=== PATIENT | female | born 1990 | race Caucasian/White ===

== ENCOUNTER 2018-01-04 10:25 | Inpatient (IN) | payer OTHER ==
[~2018-01-04] VITALS: Ht 165 cm; Wt 80.3 kg
[2018-01-04] MEDS ORDERED: PREN1TAB26 PO (10:48)
[2018-01-04] MEDS ORDERED: RINGERS SOLUTION,LACTATED 1,000 ML IV ONE (11:16)
[2018-01-04] MEDS ORDERED: OXYTOCIN 30 UNITS/LACT RINGERS 500 ML IV ONE (11:16)
[2018-01-04] MEDS ORDERED: LIDOCAINE/PF 1% 30 ML VIAL INJ PRN (11:30)
[2018-01-04] MEDS ORDERED: METOCLOPRAMIDE HCL 5 MG/ML 2 ML VIAL IVP PRN (11:30)
[2018-01-04] MEDS ORDERED: MISOPROSTOL 25 MCG TABLET PO ONE ×2 (11:30→17:00)
[2018-01-04] MEDS ORDERED: CITRIC ACID/SODIUM CITRATE 30 ML SOLUTION UDCUP PO PRN (11:30)
[2018-01-04 11:35] VITALS: BP 110/67
[2018-01-04] MEDS ORDERED: CALC-1038 PO (11:43)
[2018-01-04] MEDS ORDERED: FERR1TAB45 PO (11:43)
[2018-01-04] MEDS: RINGERS SOLUTION,LACTATED 1,000 ML IV SCH ×2 (12:22→17:58)
[2018-01-04 13:01] LABS: BASOPHILS % (AUTO) 0.1 % (0.0-2.0); EOSINOPHILS % (AUTO) 0.2 % (1.0-6.0); HEMATOCRIT 38.4 % (36-46); HEMOGLOBIN 13.2 g/dL (12.0-16.0); LYMPHOCYTES # (AUTO) 2.2 K/uL (1.0-4.8); LYMPHOCYTES % (AUTO) 16.8 % (22.0-44.0); MEAN CORPUSCULAR HEMOGLOBIN 29.1 pg (26.0-34.0); MEAN CORPUSCULAR HGB CONC 34.4 G/dL (31.0-37.0); MEAN CORPUSCULAR VOLUME 84 fL (80-100); MONOCYTES # (AUTO) 0.9 K/uL (0.1-1.0); MONOCYTES % (AUTO) 7.2 % (2.0-9.0); NEUTROPHILS # (AUTO) 9.7 K/uL (1.8-7.7); NEUTROPHILS % (AUTO) 75.7 % (40.0-70.0); PLATELET COUNT (AUTO) 208 K/uL (150-450); RED BLOOD CELL COUNT(AUTO) 4.55 MIL/uL (4.00-5.20); RED CELL DISTRIBUTION WIDTH 20.6 % (11.5-14.5)
[2018-01-04] MEDS: FentaNYL CITRATE-PF 100 MCG/2 ML VIAL IVP PRN ×6 (15:23→18:07)
[2018-01-04] MEDS ORDERED: PROMETHAZINE HCL 25 MG/ML VIAL IM ONE (17:45)
[2018-01-04] MEDS ORDERED: ROPIVACAINE HCL/PF 0.2% 100 ML ED ONE (17:46)
[2018-01-04] MEDS ORDERED: OXYTOCIN 30 UNITS/LACT RINGERS 500 ML IV PRN (19:30)
[2018-01-05] MEDS ORDERED: OXYTOCIN 30 UNITS/LACT RINGERS 500 ML IV ONE (00:38)
[2018-01-05] MEDS ORDERED: LIDOCAINE/PF 1% 30 ML VIAL INJ PRN (00:45)
[2018-01-05] MEDS ORDERED: OxyCODONE HCL/ACETAMINOPHEN 5-325 MG TABLET PO PRN ×2 (00:45)
[2018-01-05] MEDS ORDERED: BENZOCAINE 20%/MENTHOL 56 GM SPRAY CANISTER TP PRN (00:45)
[2018-01-05] MEDS ORDERED: GLYCERIN/WITCH HAZEL LEAF 40 PADS JAR TP PRN (00:45)
[2018-01-05] MEDS: IBUPROFEN 800 MG TABLET PO PRN ×3 (05:10→20:12)
[2018-01-05] MEDS: LANOLIN 7 GM OINTMENT TP PRN ×2 (05:10→20:37)
[2018-01-05] MEDS: MAGNESIUM HYDROXIDE SUSPENSION 30 ML UDCUP PO PRN ×2 (09:11→20:12)
[2018-01-06] MEDS: IBUPROFEN 800 MG TABLET PO PRN ×2 (03:16→09:13)
[2018-01-06 06:00] LABS: BASOPHILS % (AUTO) 0.1 % (0.0-2.0); EOSINOPHILS % (AUTO) 0.7 % (1.0-6.0); HEMATOCRIT 29.6 % (36-46); LYMPHOCYTES # (AUTO) 3.2 K/uL (1.0-4.8); LYMPHOCYTES % (AUTO) 26.4 % (22.0-44.0); MEAN CORPUSCULAR HEMOGLOBIN 29.4 pg (26.0-34.0); MEAN CORPUSCULAR HGB CONC 34.3 G/dL (31.0-37.0); MEAN CORPUSCULAR VOLUME 86 fL (80-100); MONOCYTES # (AUTO) 1.2 K/uL (0.1-1.0); MONOCYTES % (AUTO) 9.8 % (2.0-9.0); NEUTROPHILS # (AUTO) 7.6 K/uL (1.8-7.7); PLATELET COUNT (AUTO)-OB 192 K/uL (150-450); RED BLOOD CELL COUNT(AUTO) 3.45 MIL/uL (4.00-5.20); RED CELL DISTRIBUTION WIDTH 20.1 % (11.5-14.5)
[2018-01-06 06:10] LABS: HEMOGLOBIN 10.1 g/dL (12.0-16.0)
[2018-01-06] MEDS: MAGNESIUM HYDROXIDE SUSPENSION 30 ML UDCUP PO PRN (09:19)
[2018-01-06] MEDS ORDERED: IBUP-2071 PO (09:43)
[2018-01-06] MEDS ORDERED: DSS100 PO (09:44)
[2018-01-06] MEDS ORDERED: FERR-89 PO (09:45)
== END 2018-01-06 13:20 | disposition home or self-care (01) | DRG 807 ==
LOC: 4S 10:25 → OBSVTOIN 10:25
PROVIDERS: ADMIT Obstetrics & Gynecology; ATTEND Obstetrics & Gynecology
PROC: 10E0XZZ Delivery of Products of Conception, External Approach (ICD-10-PCS; principal; 2018-01-04)
PROC: 0KQM0ZZ Repair Perineum Muscle, Open Approach (ICD-10-PCS; 2018-01-04)
PROC: 3E0R3BZ Introduction of Anesthetic Agent into Spinal Canal, Percutaneous Approach (ICD-10-PCS; 2018-01-04)
PROC: 00HU33Z Insertion of Infusion Device into Spinal Canal, Percutaneous Approach (ICD-10-PCS; 2018-01-04)
PROC: 3E02340 Introduction of Influenza Vaccine into Muscle, Percutaneous Approach (ICD-10-PCS; 2018-01-06)
DX: O69.81X0 Labor and delivery complicated by cord around neck, without compression, not applicable or unspecified (principal); Z37.0 Single live birth; O70.1 Second degree perineal laceration during delivery; Z3A.38 38 weeks gestation of pregnancy; Z23 Encounter for immunization
CPT/HCPCS: 86850; 86900; 86901; 90686; J2550; J2590; J2795; J3010; J7120